=== PATIENT | female | born 1960 | race Caucasian/White ===

== ENCOUNTER 2016-06-17 19:29 | Emergency (ER) | payer MEDICARE, OTHER ==
--- NOTE | ~2016-06-17 | CR126 ---
[facility] A Service of [facility] RADIOLOGY TEXT RESULTS PATIENT: AURELIANO HARRELL LOCATION: CFTX : 60 UNIT #: [id number] AGE: [address]: ISAIAS RIVAS APRN SEX: F ORDER DR: [id number] [facility] [address] [place], [place] [address] [id number] E MR#: [id number] Acc #: [id number] NAME: AURELIANO HARRELL : 1960 SEX: F STUDY DATE/TIME: 06/17/2016 20:06 UNIT: [facility] ROOM: STUDY DESCRIPTION: CR Foot Complete Min 3 View Lt Attending Physician: Isaias Rivas Aprn Ordering Physician: Isaias Rivas Aprn Primary Care Physician: Mayda Kelly M.D. MEDICAL IMAGING REPORT This report is preliminary unless electronic signature is present EXAM Left foot, 06/17/2016 HISTORY 55-year-old female with left foot pain and swelling after dropping a can on foot 06/17/2016. COMPARISON None. FINDINGS 3 views of the left foot demonstrate no evidence of acute fracture or dislocation. Soft tissues are unremarkable. Small plantar calcaneal spur. Prominent ossification at the Achilles tendon insertion. IMPRESSION 1. No acute fracture or dislocation. 2. Small plantar calcaneal spur and prominent ossification at the Achilles tendon insertion. Dictated by... Dani Dominguez M.D. THIS IS AN ELECTRONICALLY VERIFIED REPORT Dani Dominguez M.D. at 06/17/2016 10:55 PM WM/nickie TD: 06/17/2016 22:19 JOB #: [id number] MEDICAL IMAGING REPORT Page 1 of 1 COPY
[~2016-06-17 19:29] MED LIST: AMARYL PO; ASPIRIN81 M2 PO; LISINOPRIL20 MG PO; MOBIC15 MG PO; PRAVASTATIN SOD40 MG PO; VERAPAMIL HCL120 M1 PO
== END 2016-06-17 21:45 | disposition home or self-care (01) ==
LOC: CFTX 19:29 → CED 19:29 → CFTX 21:33
DX: S90.32XA Contusion of left foot, initial encounter (principal); I11.9 Hypertensive heart disease without heart failure; Z88.0 Allergy status to penicillin; W20.8XXA Other cause of strike by thrown, projected or falling object, initial encounter; Y92.009 Unspecified place in unspecified non-institutional (private) residence as the place of occurrence of the external cause
CPT/HCPCS: 29405; 73630; 99283